=== PATIENT | female | born 1955 | race Caucasian/White ===

== ENCOUNTER 2022-01-26 16:30 | Outpatient (RCR) | payer BC, SELFPAY ==
--- NOTE | 2022-01-13 10:28 | PT.OPDN ---
PT [place] Outpatient Daily Note PT [facility] Outpatient Daily Note Start: 01/10/22 16:40 Freq: Status: Active Protocol: Document 01/10/22 16:40 CJT (Rec: 01/10/22 16:46 CJT [id number]) E-Signed By John Nguyen, PT PT OP Daily Progress Note Visit Information Note Type No Charge Visit Number 0 Insurance Authorized Visits tbd Physician Authorized Visits eval and treat Cancellation Note Cancelled Documentation This documentation is for the purpose of transferring information from old EMR to new EMR only. It is not attached to any specific visit or billing. Insurance Information Recert Due Date 03/03/22 Insurance Name [place] Medical Diagnosis L ankle OA, R knee OA, R RTC tendonitis Treating Diagnosis M25.511 - R shoulder pain M25.561 - R knee pain M25.572 - L ankle pain Referring Geovany Brown MD Subjective Subjective Pt presents with L ankle pain, R knee pain, and R shoulder RTC tendinitis. Left Ankle - Pt reports L ankle injury about 20 years ago after rolling her ankle over a crack in the cement while working. Has caused problems every so often since. Stairs are very challenging now and her ankle tends to lock up on her especially after periods of rest. Bleachers at work cause her the most pain and she has to use step-to pattern while going down stairs. Always steps down with the R LE first. She thinks this caused onset of R knee pain. 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 When ankle flares up it takes about 2 days to recover. R Shoulder - Pts R shoulder has been bothering her for past year. Points to front of shoulder and notes discomfort feels like it's deep in there . Pain does not get to a 10/ 10 but when it gets aggravated from work it will hurt through the night. Any lifting in front of the body or overhead causes pain. Laying on her R side in bed causes pain. Pt has history of R shoulder surgery about 20 years ago. Activity makes her pain worse, rest improves her pain. Right Knee - Sometimes she doesn't feel any pain in her knee at all. When she is not on the stairs/bleachers as much at work her knee feels better. Pt points to anterior knee along borders of patellar tendon today as the source of her pain, notes that it feels kind of jelly in there. Pts issues are keeping her from sleeping through the night. Pt notes there are some nights where she feels like she barely gets any sleep due to her aches and pains, but other nights she will sleep fairly well. Pain Comments L ankle - 10/10 at worst, 2/10 best R shoulder - 7/10 worst, 1-2/ 10 best R knee - 0/10 best; 6/10 worst Objective Other/Pertinent Objective Next session will be treatment session #2 Shoulder AROM R Flexion/Abduction/IR/ER - 170/165/T9/80 L Flexion/Abduction/IR/ER - 170/165/T7/80 B ankle DF/PF/IV/EV - 12(9)/60 /30/10 Mild pinching Reese/Jamil on R Minimal pain with L talar tilt test Medial/Lateral squeeze test reproduces at at B malleoli on L Patient Instructed in Risks/Benefits Yes Therapeutic Exercise Therapeutic Exercise: To Restore 4-way ankle with BRB x 20 reps Functional Status ea in long sitting Clamshells with ORB x 20 reps ea, 5 hold Supine bridge with ORB at knees x 20 reps, 5 hold Gastroc stretch in standing with toe at wall x 60 ea Shoulder IR/ER with ORB x 20 reps ea Self Care Management Training Self Care Management Training Kin tape applied to lateral knee to improve stability Assessment/Impression Assessment/Impression Pt presents with R shoulder, R knee, and L ankle pain. Ankle pain is pts primary concern and has been an issue for many years. Stairs make pain worse and rest will gradually make pain decrease. Pt notes she steps down with R LE when on stairs and this seems to be contributing to her R knee pain. R shoulder pain has been ongoing for past year. Made worse with lifting, reaching, laying on her R side. Testing reveals good strength throuhgout upper and lower extremities and reproducing pts pain is challenging today. Pts primary issue seems to be related to osteoarthritis in the knee and ankle. Skilled PT services are medically necessary at this time for addressing deficits and returning pt to highest level of function. Printout of HEP was given to pt and pt gave verbal understanding of each as well as demonstrated proper performance. Discussed scheduling with pt including 2/week for 8 weeks and pt gave verbal understanding and consent. Plan of Care Physical Therapy Goals STG - To be completed in 2-3 weeks: 1. Pt to report reduction in pain by factor of 3 in ankle after working so that she may I manage her pain to prepare for following work day. 2. Pt will report consistent use of ice on ankle following long work days to allow for appropriate control of pain and swelling in L ankle. 3. Pt will demo improved R shoulder IR equal to that of L so that she may fasten her bra with both hands . LTG - To be completed in 8 weeks: 1. Pt to be I with HEP so that they may I manage progression of symptoms. 2. 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 3. Pt will report ability to walk up to 2 miles wihtout increase in akle and knee pain so that she may walk for recreational exericse . 4. Pt will demo 5/5 MMT for empty can as indication of healed RTC tendon on R to provide greater stability for her shoulder. Daily Plan of Care Continue per POC Recertification Information Clinical Certification # #[id number] Patient's H.I.C.N.# # I Certify That I Have Established All Therapy Services/Plan Physician Signature Shows Agreement Dates & Medical Necessity Physician Comment/Change Comment or Changes Physician Signature & Date Please Sign/Date Here Physician NPI Number # Document 01/13/22 08:54 CJAlejandro (Rec: 01/13/22 09:00 CJT [id number]) E-Signed By John Nguyen, PT PT OP Daily Progress Note Visit Information Note Type Daily Note Visit Number 2 Insurance Authorized Visits tbd Physician Authorized Visits eval and treat Insurance Information Recert Due Date 03/03/22 Insurance Name [employer] Medical Diagnosis L ankle OA, R knee OA, R RTC tendonitis Treating Diagnosis M25.511 - R shoulder pain M25.561 - R knee pain M25.572 - L ankle pain Referring Geovany Brown MD Subjective Subjective Pt notes she has been doing well. Hasn't had much shoulder pain since last visit. Has not been faithful with her HEP as she reports she was not in the right mindset for completing exercises without having any appointments scheduled. Pain Comments L ankle - 10/10 at worst, 2/10 best R shoulder - 7/10 worst, 1-2/ 10 best R knee - 0/10 best; 6/10 worst Objective Other/Pertinent Objective Shoulder AROM R Flexion/Abduction/IR/ER - 170/165/T9/80 L Flexion/Abduction/IR/ER - 170/165/T7/80 B ankle DF/PF/IV/EV - 12(9)/60 /30/10 Mild pinching Reese/Jamil on R Minimal pain with L talar tilt test Medial/Lateral squeeze test reproduces at at B malleoli on L Patient Instructed in Risks/Benefits Yes Therapeutic Exercise Therapeutic Exercise Minutes (minutes) 50 Therapeutic Exercise: To Restore Bike - 6 minutes Functional Status 4-way ankle with BRB x 20 reps ea in long sitting Clamshells with ORB x 20 reps ea, 5 hold Supine bridge x 20 reps, 5 hold Shoulder IR/ER with ORB x 20 reps ea Extensions with GRB x 20 reps Rows with BRB x 20 reps Leg press, seat 8, 50# 2 x 15 reps CC Walking, 15# backward only x 6 rounds Side steps with light band around forefoot x 30 ft ea Gait & Stair Training Gait Training/Stairs Minutes (minutes) 8 Gait & Stair Training Comments Stair training with focus on down with the bad stepping technique as well as focus on reaching with toe to lower step to reduce strain on dependent LE. Pt shows good understanding of these techniques to be used if/when her ankle flares up after a long day of work. Self Care Management Training Self Care Management Training Kin tape applied to lateral knee to improve stability Treatment Minutes Timed Code Treatment Minutes 58 Total Treatment Time 58 Assessment/Impression Assessment/Impression Pt tolerates all exercises well today and shows good understanding of proper performance of exercises from HEP. Will plan to progress these when she returns as long as she reports consistency with these at home. Plan of Care Physical Therapy Goals STG - To be completed in 2-3 weeks: 1. Pt to report reduction in pain by factor of 3 in ankle after working so that she may I manage her pain to prepare for following work day. 2. Pt will report consistent use of ice on ankle following long work days to allow for appropriate control of pain and swelling in L ankle. 3. Pt will demo improved R shoulder IR equal to that of L so that she may fasten her bra with both hands . LTG - To be completed in 8 weeks: 1. Pt to be I with HEP so that they may I manage progression of symptoms. 2. 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 3. Pt will report ability to walk up to 2 miles wihtout increase in akle and knee pain so that she may walk for recreational exericse . 4. Pt will demo 5/5 MMT for empty can as indication of healed RTC tendon on R to provide greater stability for her shoulder. Daily Plan of Care Continue per POC
== END 2023-01-03 08:53 | disposition home or self-care (01) ==
PROVIDERS: PCP Family Medicine; Visit Provider Family Medicine
DX: M19.072 Primary osteoarthritis, left ankle and foot (principal); M17.11 Unilateral primary osteoarthritis, right knee; M75.101 Unspecified rotator cuff tear or rupture of right shoulder, not specified as traumatic; M25.511 Pain in right shoulder; M25.561 Pain in right knee; M25.572 Pain in left ankle and joints of left foot; Z51.89 Encounter for other specified aftercare
CPT/HCPCS: 97110; 97140; 97535

== ENCOUNTER 2022-02-23 13:13 | Outpatient (CLI) | payer BC, SELFPAY ==
--- NOTE | 2022-02-23 13:20 | CRLHL7_ITS ---
For Patients: As a result of the Cures Act, medical imaging exams and procedure reports are released immediately into your electronic medical record. You may view this report before your referring provider. If you have questions, please contact your health care provider. BILATERAL MAMMOGRAM WITH COMPUTER-AIDED DETECTION AND TOMOSYNTHESIS TECHNIQUE: CC and MLO views were obtained. These mammographic images have been obtained using full-field digital technique. These mammographic images were interpreted with the benefit of computer-aided detection. Breast Tomosynthesis was used in this interpretation. COMPARISON FILM: 03/19/20, 01/03/19, 07/20/17. FINDINGS: There are scattered areas of fibroglandular density IMPRESSION: There is no radiographic evidence for malignancy. ASSESSMENT: BI-RADS Category 1: Negative RECOMMENDATION: Routine screening mammogram in 1 year. A lay language report of this examination will be provided to the patient. Elio Erwin M.D. Diagnostic Radiologist [email or web address] KAMLESH/fercho / be/Dictated by: Elio Erwin MD @ 02/24/2022 9:23:00 AM (Electronically Signed)
== END 2022-02-23 13:14 | disposition home or self-care (01) ==
LOC: MAMMO 13:14
PROVIDERS: PCP Family Medicine; Visit Provider Nurse Practitioner Family
DX: Z12.31 Encounter for screening mammogram for malignant neoplasm of breast (principal)
CPT/HCPCS: 77063; 77067

== ENCOUNTER 2022-03-03 14:26 | Outpatient (CLI) | payer BC, SELFPAY ==
[2022-03-03 18:26] LABS: SARS PCR* POSITIVE SARS-CoV-2 (Negative)
== END 2022-03-03 14:27 | disposition home or self-care (01) ==
LOC: LONREF 14:26
PROVIDERS: PCP Family Medicine; Visit Provider Nurse Practitioner Family
DX: U07.1 COVID-19 (principal); R09.81 Nasal congestion
CPT/HCPCS: 87635

== ENCOUNTER 2022-03-27 07:44 | Outpatient (CLI) | payer BC, SELFPAY ==
--- NOTE | 2022-03-27 08:00 | CRLHL7_ITS ---
For Patients: As a result of the Century Cures Act, medical imaging exams and procedure reports are released immediately into your electronic medical record. You may view this report before your referring provider. If you have questions, please contact your health care provider. Indication: Left ANKLE PAIN, PREVIOUS INJURY (25 YEARS), now stiffness causing mobility issues Technique: Routine noncontrast CT left ankle. Please note that all CT scans at this facility use dose modulation, iterative reconstruction, and/or weight-based dosing when appropriate to reduce radiation dose to as low as reasonably achievable. Comparison: X-rays 11/24/2021 Findings: Joint space narrowing and spurring at the tibiotalar joint noted with subchondral cystic changes within the talar dome. Mild widening of the lateral mortise. Hypertrophic changes to the distal fibula. Old distal fibular metaphyseal fracture. Chronic ossicles adjacent to the medial malleolus. Chronic cystic changes within the medial malleolus with no evidence of acute fracture. No synovitis. Plantar and posterior calcaneal spurs. No coalition. Mild spurring at the posterior facet of the subtalar joint. Impression: Posttraumatic tibiotalar degenerative arthropathy. Please note that all CT scans at this facility use dose modulation, iterative reconstruction, and/or weight-based dosing when appropriate to reduce radiation dose to as low as reasonably achievable. Dictated by Elio Erwin MD @ 03/27/2022 9:07:45 AM (Electronically Signed)
== END 2022-03-27 07:45 | disposition home or self-care (01) ==
LOC: CT 07:45
PROVIDERS: PCP Family Medicine; Visit Provider Family Medicine
DX: M25.572 Pain in left ankle and joints of left foot (principal)
CPT/HCPCS: 73700

== ENCOUNTER 2022-04-26 10:30 | Outpatient (CLI) | payer BC, SELFPAY ==
[2022-04-26 13:08] LABS: SARS PCR* Negative SARS-CoV-2 (Negative)
== END 2022-04-26 10:31 | disposition home or self-care (01) ==
LOC: LONREF 10:30
PROVIDERS: PCP Family Medicine; Visit Provider Family Medicine
DX: Z20.822 Contact with and (suspected) exposure to COVID-19 (principal); R09.81 Nasal congestion
CPT/HCPCS: 87635

== ENCOUNTER 2022-09-22 07:54 | Outpatient (CLI) | payer BC, SELFPAY | END 2022-09-22 07:55 | disposition home or self-care (01) | LOC: RAD 07:57 | PROVIDERS: PCP Family Medicine; Visit Provider Internal Medicine | DX: I47.1 Supraventricular tachycardia (principal) | CPT/HCPCS: 93306 ==

== ENCOUNTER 2023-02-02 08:10 | Outpatient (CLI) | payer BC, SELFPAY | END 2023-02-02 08:11 | disposition home or self-care (01) | PROVIDERS: PCP Family Medicine; Visit Provider Family Medicine | DX: I10 Essential (primary) hypertension (principal); E78.5 Hyperlipidemia, unspecified; Z13.29 Encounter for screening for other suspected endocrine disorder; Z13.21 Encounter for screening for nutritional disorder | CPT/HCPCS: 80048; 80061; 82607; 84443 ==

== ENCOUNTER 2023-02-21 16:54 | Emergency (ER) | payer OTHER, BC, SELFPAY ==
[2023-02-21 16:59] VITALS: BP 167/81; PULSE 105; RESP 18; TEMP 36.8; O2SAT 97; BMI 29.2
--- NOTE | 2023-02-21 17:32 | ED_ITS ---
HPI - Wound/Laceration General Chief Complaint: Laceration/Wound Stated Complaint: R hand laceration Time Seen by Provider: 02/21/23 17:04 History of Present Illness HPI narrative: This 68-year-old female comes in with a laceration in the web space between her thumb and index finger of her right hand. She was walking through a construction area and slipped and pushed her hands forward on a double door and somehow caused this laceration. Her tetanus status is up-to-date. She does not report any other injury. Related Data Home Medications Medication Instructions Recorded Confirmed aspirin 81 mg tablet,delayed 81 mg PO QDAY 02/07/22 02/02/23 release (Adult Low Dose Aspirin) multivitamin (Multiple Vitamins 1 tab PO QDAY 02/07/22 02/02/23 tablet) cholecalciferol (vitamin D3) 25 25 mcg PO QDAY 04/26/22 02/02/23 mcg (1,000 unit) capsule omega 4-dvi-ldr-fish oil 300 1 cap PO QDAY 04/26/22 02/02/23 mg-1,000 mg capsule (Fish Oil) fluticasone propionate 50 spray intranasal 02/02/23 02/02/23 mcg/actuation nasal spray,suspension Previous Rx's Medication Instructions Recorded atorvastatin 40 mg tablet 40 mg PO QDAY #90 tabs 02/02/23 metoprolol succinate 25 mg 25 mg PO DAILY #90 tabs 02/02/23 tablet,extended release 24 hr Allergies Allergy/AdvReac Type Severity Reaction Status Date / Time niacin Allergy Unknown Rash Verified 02/02/23 07:39 Sulfa (Sulfonamide Allergy Unknown Rash Verified 02/02/23 07:39 Antibiotics) Review of Systems Status of ROS: Reports: 10 or more systems reviewed and unremarkable except as noted in History and below Narrative: Constitutional: No fevers, no weight gain or loss. Eyes: No discharge. No vision changes. HENT: No congestion, no sore throat, no ear pain. Cardiovascular: No chest pain, no palpitations. Respiratory: No shortness of breath, no wheezes, no cough. Gastrointestinal: No abdominal pain, no vomiting, no diarrhea. Genitourinary: No dysuria, no hematuria. Musculoskeletal: Normal range of motion. Skin: No rashes, no pruritis. Neurological: No dizziness, weakness, sensory change, speech change. Endo/Heme/Allergies: No bruising or bleeding. No polydipsia. Pysch: no suicidality, no anxiety, no insomnia. All other systems reviewed and are negative. PFSH PFSH Medical History TIA (transient ischemic attack) ?G45.9 - Transient cerebral ischemic attack, unspecified (ICD-10) Surgical History Status post shoulder surgery ?Z98.890 - Other specified postprocedural states (ICD-10) History of cardiac radiofrequency ablation ?Z98.890 - Other specified postprocedural states (ICD-10) Family History Brother High blood pressure Positive GBS test Alcohol dependence Mother High blood pressure Father High blood pressure Social History (Updated 02/05/23 @ 09:15 by Yamile Palomares [facility], [facility]) What is your current living situation?: I presently have a place to live Problems where you live: declined to answer In the past 12 months, utilities in danger of being shut off: no In the past 12 mos, have been you worried that your food would run out before you had money to buy more?: never true In the past 12 mos, the food you bought just didn't last and you didn't have money to buy more?: never true Smoking Status: Former smoker Second hand tobacco smoke exposure: No How often do you have a drink containing alcohol: never How often do you have six or more drinks on one occasion: Never AUDIT-C Alcohol total score: 0 Non-prescribed substance use: denies use Are you now , , , , never or living with a partner: Social isolation score (0-1 are the most socially isolated patients): 1 How often does anyone, including family, friends and others, physically hurt you : never How often does anyone, including family, friends and others, insult or talk down to you: never How often does anyone, including family, friends and others, threaten you with harm: never How often does anyone, including family, friends and others, scream or curse at you: never Little interest or pleasure in doing things: not at all Feeling down, depressed, or hopeless: not at all Exam Narrative: Exam Narrative: Constitutional: Well-developed, well-nourished, no acute distress. HEENT: Normocephalic, atraumatic. Neck: Normal range of motion. Nontender. Supple. Heart: Intact distal pulses. Lungs: No chest discomfort. No wheezes, rhonchi, or rales. Abdomen: Nontender. Back: Normal range of motion. Extremities: Normal range of motion. 3 cm irregular laceration in the interdigital space between the right thumb and index finger. There is no sign of tendon dysfunction or nerve injury. Skin: Intact. No rash. Warm. No erythema or pallor. Neurologic: No altered sensation. No weakness. Alert and oriented. Psychiatric: No suicidality. No anxiety or depression. No insomnia. Nursing notes and vitals signs are reviewed. Const: Vital Signs, click to edit/add: Vital Signs - 24 hr 02/21/23 16:59 Temperature 98.2 F Pulse Rate [Pulse Oximeter] 105 H Respiratory Rate 18 Blood Pressure [Ri ght Upper Arm] 167/81 H Pulse Oximetry 97 Oxygen Delivery Me thod Room Air Course Vital Signs Vital signs: Initial Vital Signs Temperature 98.2 F 02/21/23 16:59 Temperature Source Temporal Artery Scan 02/21/23 16:59 Pulse Rate 105 H 02/21/23 16:59 Respiratory Rate 18 02/21/23 16:59 Blood Pressure 167/81 H 02/21/23 16:59 Blood Pressure Mean 109 H 02/21/23 16:59 Pulse Oximetry 97 02/21/23 16:59 Oxygen Delivery Method Room Air 02/21/23 16:59 Vital Signs Temperature 98.2 F 02/21/23 16:59 Pulse Rate 105 H 02/21/23 16:59 Respiratory Rate 18 02/21/23 16:59 Blood Pressure 167/81 H 02/21/23 16:59 Pulse Oximetry 97 02/21/23 16:59 Oxygen Delivery Method Room Air 02/21/23 16:59 Temperature 98.2 F 02/21/23 16:59 Pulse Rate 105 H 02/21/23 16:59 Respiratory Rate 18 02/21/23 16:59 Blood Pressure 167/81 H 02/21/23 16:59 Pulse Oximetry 97 02/21/23 16:59 Oxygen Delivery Method Room Air 02/21/23 16:59 MDM - Wound/Laceration MDM Narrative Medical decision making narrative: This patient has a laceration to her right hand as described above. It would benefit from a repair. After anesthesia with 1% lidocaine the wound was cleansed and explored to its base. Seven sutures were placed in interrupted fashion to approximate the wound edges. This was done using 4.0 Ethilon suture. 2 Band-Aids were then applied. Instructions regarding wound care were given along with the need to have sutures removed in 7-10 days. Discharge Plan Discharge Clinical Impression: Laceration Patient Disposition: Home, Self-Care Condition: Improved Additional Instructions: Keep wound clean and dry. Follow up with urgent care or primary physician in the clinic for suture removal in 7-10 days. Return if worsening. Prescriptions: No Action omega 3-bqb-cpt-fish oil [Fish Oil] 300-1,000 mg capsule 1 cap PO QDAY cholecalciferol (vitamin D3) 25 mcg (1,000 unit) capsule 25 mcg PO QDAY fluticasone propionate 50 mcg/actuation spray,suspension intranasal atorvastatin 40 mg tablet 40 mg PO QDAY Qty: 90 3RF metoprolol succinate 25 mg tablet extended release 24 hr 25 mg PO DAILY Qty: 90 3RF multivitamin [Multiple Vitamins] Tablet 1 tab PO QDAY aspirin [Adult Low Dose Aspirin] 81 mg tablet,delayed release (DR/EC) 81 mg PO QDAY Follow Up/Referrals: Nacho Ma MD [Primary Care Provider] - Stand Alone Forms: [employer] Info Instructions
[2023-02-21 17:58] VITALS: BP 141/77; PULSE 69; RESP 12
== END 2023-02-21 17:57 | disposition home or self-care (01) ==
PROVIDERS: Emergency Provider Emergency Medicine Emergency Medical Services; PCP Family Medicine
DX: S61.411A Laceration without foreign body of right hand, initial encounter (principal); W26.9XXA Contact with unspecified sharp object(s), initial encounter; Y99.0 Civilian activity done for income or pay
CPT/HCPCS: 12002; 99283; 99284

== ENCOUNTER 2024-03-14 09:30 | Outpatient (CLI) | payer BC, OTHER, SELFPAY | END 2024-03-14 09:31 | disposition home or self-care (01) | LOC: NFLDREF 03-17 06:51 | PROVIDERS: PCP Family Medicine; Referring Provider Family Medicine; Visit Provider Family Medicine | DX: R19.5 Other fecal abnormalities (principal); E78.00 Pure hypercholesterolemia, unspecified; I10 Essential (primary) hypertension; Z13.0 Encounter for screening for diseases of the blood and blood-forming organs and certain disorders involving the immune mechanism | CPT/HCPCS: 80048; 80061 ==

== ENCOUNTER 2025-02-10 14:26 | Outpatient (RCR) | payer BC, SELFPAY | END 2025-04-21 14:21 | disposition home or self-care (01) | PROVIDERS: PCP Family Medicine | DX: S89.92XD Unspecified injury of left lower leg, subsequent encounter (principal); M25.562 Pain in left knee; Z51.89 Encounter for other specified aftercare | CPT/HCPCS: 97110; 97161 ==

== ENCOUNTER 2025-02-18 15:00 | Outpatient (CLI) | payer BC, SELFPAY | END 2025-02-18 15:01 | disposition home or self-care (01) | LOC: LKVREF 15:01 | PROVIDERS: PCP Family Medicine; Visit Provider Family Medicine | DX: E78.00 Pure hypercholesterolemia, unspecified (principal); I10 Essential (primary) hypertension; Z01.818 Encounter for other preprocedural examination | CPT/HCPCS: 80061 ==

== ENCOUNTER 2025-07-01 08:07 | Emergency (ER) | payer BC, SELFPAY ==
[2025-07-01] VITALS (10 sets, daily range): BP systolic 117–143; BP diastolic 63–81; PULSE 66–84; RESP 12–20; TEMP 36.1; O2SAT 93–97; BMI 29.2
--- NOTE | 2025-07-01 08:09 | CRLHL7_ITS ---
For Patients: As a result of the Cures Act, medical imaging exams and procedure reports are released immediately into your electronic medical record. You may view this report before your referring provider. If you have questions, please contact your health care provider. INDICATION: Chest pain. TECHNIQUE: Chest 2 views. COMPARISON: 06/30/2024. FINDINGS: Lungs and pleural spaces: No consolidation. No pleural effusion. No pneumothorax. Cardiovasculature and mediastinum: Heart size and mediastinal contours are normal. IMPRESSION: No acute cardiopulmonary abnormality Dictated by Juan Fernandez MD @ 07/01/2025 9:05:40 AM (Electronically Signed)
--- OUTSIDE RECORDS SUMMARY | 2025-07-01 08:17 | XMS_ITS | Clinical Summary ---
Author Organization [facility] Address [address] [place] [id number] Care Team Providers Care Unit Coordinator Name Role Phone Nacho Ma MD Primary Care Provider [phone] Allergies Active AllergyReactionsCriticalityNoted GytzJrwlpxflFanqdpXthv50/19/2014Sulfa (Sulfonamide Antibiotics)OlsvOgn6204/05/2023 Years ago when Medications MedicationSigDispense QuantityRefillsLast FilledStart DateEnd DateStatus multivitamin (MVI) tablet Take 1 tablet by mouth once daily. With calcium + vitamin D.ctive vitamin e 1,000 unit cap Take 4 capsules by mouth once daily.Active metoprolol succinate (TOPROL XL) 25 mg Sustained-Release tablet Take 25 mg by mouth once daily.07/26/2022ctive atorvastatin (LIPITOR) 40 mg tablet Take 0.5 Tablets (20 mg) by mouth at bedtime.ctive Dlxit-7-GYX-EPA-Fish Oil (Fish OiL) 1,000 mg (120 mg-180 mg) cap Take by mouth once daily.ctive aspirin (ECOTRIN) 81 mg enteric coated tablet Indications:Atypical chest painTake 1 Tablet (81 mg) by mouth once daily with a meal.ctive Active Problems ProblemNoted DateDiagnosed DateS/p left shoulder arthroscopic rotator cuff repair, subacromial decompression, and distal clavicle excision, DOS 10/25/[address] 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 unsure of health statusMotherAliveage 77; good healthSister 1ConnieAliveage 59; htnSister 2CorrineAliveage 47; good health Social History Tobacco UseTypesPacks/DayYears UsedDateSmoking Tobacco: TqjfppGyyazvnphs65 07/29/1975 - 07/29/1981Smokeless Tobacco: Never Tobacco Cessation:Counseling Given: Not Answered Comments:Quit smoking in 1981 Alcohol UseStandard Drinks/WeekCommentsYes0 (1 standard drink = 0.6 oz pure alcohol)very rareSocial ConnectionsAnswerDate RecordedFrequency of Communication with Friends and Ybmdva161Financial Resource StrainAnswerDate Recorded Difficulty of Paying Living Stfqqzgr362/21/2023Difficulty of Paying Living ExpensesNot on file04/05/2023Food InsecurityAnswerDate RecordedWorried About Running Out of Food in the Last Mdnn992Transportation NeedsAnswerDate RecordedLack of Transportation (Medical)Housing StabilityAnswerDate RecordedUnable to Pay for Housing in the Last Haqr6383CommentsNo Sex and Gender InformationValueDate RecordedSex Assigned at BirthNot on file Legal ZifWoznnj30/14/2013 6:39 AM CSTGender IdentityNot on fileSexual OrientationNot on file Last Filed Vital Signs Vital SignReadingTime TakenCommentsBlood Ylovzwsb953/6609 8:53 AM CDT Uxrrv159404/05/2023 8:53 AM SMQLlbiceoqlfl82.3 ??C (97.4 ??F)07/29/2021 10:52 AM CSTRespiratory Thzp772007/29/2021 10:52 AM CSTOxygen Hiaaacujaw30%08/31/2022 4:26 PM CSTInhaled Oxygen Concentration--Bkuwwm69.1 kg (169 lb 14.4 oz)04/05/2023 8:53 AM MWYUdmliz787 cm (5' 3)04/05/2023 8:53 AM CDTBody Mass Index30.1 04/05/2023 8:53 AM CDT Plan of Treatment Health MaintenanceDue DateLast DoneCommentsDepression screening for age 12+ 1969Hepatitis C screening for age 18-7901/20/1975Pneumococcal series for age 50+ (1 of 2 - PCV)01/21/1976Colonoscopy through age Mammogram for age 45-RSV vaccine for adults or (1 - Risk 50-74 years 1-dose series)2007Zoster (shingles) series for age 50+ (1 of 2)2007 Lipids for age 45-DEXA/DXA scan for age 65+2BMI (ht and wt on same day) for age 18+, 08/31/2022, 07/29/2021, Additional history existsCOVID-19 vaccine series (2024- season)2025 11/03/2020, 10/04/2020Influenza Vaccine (#1)/, 07/02/2017, 07/18/2016Tetanus iicmubd51Hepatitis B series for 19+Aged Out No longer eligible based on patient's age to complete this topic Medical Devices ImplantedTypeAreaManufacturerDevice IdentifierShelf Expiration DateModel / Serial / LotAncr Poplock 3.5mm - [id number] Implanted:Qty: 1 on 10/25/2015 [facility] Chap[facility] ShoulderConMed [id number]-[id number]# / / [id number] Poplock 3.5mm - [id number] Implanted:Qty: 1 on 10/25/2015 by Chap[facility] Should[employer]Con[employer] [id number]-3500# / / [id number] Sut Y-Knot Rc 2x2 Sut Hi-Fi Triple - [id number] Implanted:Qty: 1 on 10/25/2015 by Chaparro Monique III, MD at [facility]: Shoulder[employer]Med [id number]# / / [id number] Sut Y-Knot Rc 2x2 Sut Hi-Fi Triple - [id number] Implanted:Qty: 1 on 10/25/2015 by Chaparro Monique III, MD at [facility]: Shoulder[employer]Med [id number]# / / [id number] Procedures Procedure NamePriorityDate/TimeAssociated DiagnosisCommentsLIPID PANELEarly AM 05/03/2014 2:43 AM CDT from Last 3 Months or Most Recently Relevant to Health Maintenance Results * (ABNORMAL) Lipid Panel - In AM (05/03/2014 2:43 AM CDT)ComponentValueRef Range Test MethodAnalysis TimePerformed AtPathologist SignatureCHOLESTEROL,KOZML314 (H)100 - 199 mg/dL05/03/2014 3:18 AM [facility] PWFBMIOMFEKEFLNGBMMKTJZ02<150 mg/dL05/03/2014 3:18 AM [facility]AL[facility]AL LABORATORYHDL ITVNGXGAPCI82>40 mg/dL05/03/2014 3:18 AM CDT [facility]-CENTRAL LABORATORYNON-HDL OFSLVQOIOGR407(H)<145 mg/dl 05/03/2014 3:18 AM [facility]-CENTRAL LABORATORYCHOL/HDL RATIO3.62<4.501 3:18 AM [facility]-CENTRAL LABORATORYLDL TYLIBYUFXUS055(H)<=130 mg/dL05/03/2014 3:18 AM [facility]-CENTR[facility] LABORATORYPATIENT WCECWVSYZHWMN73/19/2014 3:18 AM [facility]-CENTRAL LABORATORYSpecimen (Source)Anatomical Location / LateralityCollection Method / VolumeCollection TimeReceived TimeBlood specimen (specimen)BLOOD SPECIMEN / UnknownButterfly / Rxnvdax1305/03/2014 2:43 AM CDT 05/03/2014 2:53 AM CDT Narrative Authorizing ProviderResult TypeResult StatusNorma Yue Wood MDCHEMISTRY Final ResultPerforming OrganizationAddressCity/State/ZIP CodePhone Number [facility] [address] [place] [address], from Last 3 Months or Most Recently Relevant to Health Maintenance Insurance * Guarantor: STEPHANIE DEL TOROAccount TypeRelation to PatientDate of PhoneBilling AddressOcc Health/UbzfDixaklnb89/01/[address] [address] * Guarantor: Skylar Garcia EAccount TypeRelation to PatientDate of PhoneBilling PxlijmfJautzsYmvc[address] [place] [id number] Advance Directives * Full Code (Latest Code Status on File) Date ActivatedDate InactivatedComments10/25/2015 1:15 PM10/25/2015 4:43 PMQuestion AnswerCommentsCode Status Discussion:* Not Discussed * Full Code Date ActivatedDate InactivatedComments10/25/2015 9:13 AM10/25/2015 1:15 PMQuestion AnswerCommentsCode Status Discussion:* Not Discussed * Full Code Date ActivatedDate InactivatedComments08/25/2014 8:28 AM08/26/2014 1:46 PM * Full Code Date ActivatedDate QkvtjmqemakAmdfipxl36/19/2014 2:21 AM05/04/2014 5:18 PM Care Teams Team MemberRelationshipSpecialtyStart DateEnd Date Nacho Ma MD PCP - [facility]07/16/18
--- NOTE | 2025-07-01 08:19 | ED.GENADULT ---
HPI - General Adult General Chief complaint: Rib Pain Stated complaint: Fever and LT chest pain Time Seen by Provider: 07/01/25 08:08 History of Present Illness HPI narrative: [age] year white female presents with onset of illness on Sunday where she felt chilled Contin cold, she has had a mild cough. She has had a history of pneumonia. No chronic lung disease with no emphysema no asthma. She feels a little bit better with the fever but has had some with inspiration some left-sided chest discomfort and in her mid axillary line area laterally. This is only on the left. No central pain. She has does have a cough not real productive. She has had no leg swelling edema history of bleeding or clotting problems. She has had a complex history including non ST elevation OR, stroke, hypertension history of ablation x2 for supraventricular tachycardia. Has history of cervical spine stenosis. She has no leg swelling or edema No sore throat earache headache or neck pain. Related Data Home Medications ?Medication ?Instructions ?Recorded ?Confirmed aspirin 81 mg tablet,delayed 81 mg PO QDAY 02/07/22 06/25/25 release (Adult Low Dose Aspirin) cholecalciferol (vitamin D3) 25 25 mcg PO QDAY 04/26/22 06/25/25 mcg (1,000 unit) capsule omega 5-dsi-gwh-fish oil 300 1 cap PO QDAY 04/26/22 06/25/25 mg-1,000 mg capsule (Fish Oil) calcium 400 mg (as tab PO DAILY 01/06/25 06/25/25 carbonate)-magnesium 117 mg-vit C 167 mg tablet vitamins A,C,K-esiy-tajhul 4,296 1 cap PO DAILY 01/06/25 06/25/25 mcg-226 mg-90 mg capsule (PreserVision AREDS) Previous Rx's ?Medication ?Instructions ?Recorded atorvastatin 40 mg tablet 40 mg PO QDAY #90 tabs 02/18/25 metoprolol succinate 25 mg 25 mg PO DAILY #90 tabs 02/18/25 tablet,extended release 24 hr diclofenac sodium 1 % topical gel 2 g topical QID PRN pain #100 grams 06/16/25 (Voltaren Arthritis Pain) doxycycline hyclate 100 mg capsule 100 mg PO BID #14 caps 07/01/25 prednisone 20 mg tablet 20 mg PO BID 5 days #10 tabs 07/01/25 Allergies Allergy/AdvReac Type Severity Reaction Status Date / Time niacin Allergy Unknown Rash Verified 06/25/25 14:10 Sulfa (Sulfonamide Allergy Unknown Rash Verified 06/25/25 14:10 Antibiotics) Review of Systems Status of ROS: Reports: 10 or more systems reviewed and unremarkable except as noted in History and below and 6 or more systems reviewed and unremarkable except as noted in History and below PFSH PFS Medical History Osteoarthritis ?M19.90 - Unspecified osteoarthritis, unspecified site (ICD-10) Vertigo ?R42 - Dizziness and giddiness (ICD-10) History of paroxysmal supraventricular tachycardia ?Z86.79 - Personal history of other diseases of the circulatory system (ICD-10) Anxiety ?F41.9 - Anxiety disorder, unspecified (ICD-10) GERD (gastroesophageal reflux disease) ?K21.9 - Gastro-esophageal reflux disease without esophagitis (ICD-10) Hyperlipidemia ?E78.5 - Hyperlipidemia, unspecified (ICD-10) Non-ST elevation OR (NSTEMI) ?I21.4 - Non-ST elevation (NSTEMI) myocardial infarction (ICD-10) Cervical spinal stenosis ?M48.02 - Spinal stenosis, cervical region (ICD-10) Irritable bowel syndrome ?K58.9 - Irritable bowel syndrome without diarrhea (ICD-10) Hypertension ?I10 - Essential (primary) hypertension (ICD-10) Shoulder pain ?M25.519 - Pain in unspecified shoulder (ICD-10) Varicose veins of lower extremity ?I83.90 - Asymptomatic varicose veins of unspecified lower extremity (ICD-10) Positive colorectal cancer screening using Cologuard test ?R19.5 - Other fecal abnormalities (ICD-10) TIA (transient ischemic attack) ?G45.9 - Transient cerebral ischemic attack, unspecified (ICD-10) Surgical History Status post shoulder surgery ?Z98.890 - Other specified postprocedural states (ICD-10) History of cardiac radiofrequency ablation ?Z98.890 - Other specified postprocedural states (ICD-10) Family History Brother High blood pressure Positive GBS test Alcohol dependence Mother High blood pressure Father High blood pressure Social History What is your current living situation?: I presently have a place to live Problems where you live: declined to answer In the past 12 months, utilities in danger of being shut off: no In past 12 months, lack of transportation kept you from medical appts, meetings, work, or getting things needed for daily living: no In the past 12 mos, have been you worried that your food would run out before you had money to buy more?: never true In the past 12 mos, the food you bought just didn't last and you didn't have money to buy more?: never true Smoking Status: Former smoker Second hand tobacco smoke exposure: No How often do you have a drink containing alcohol: never How often do you have six or more drinks on one occasion: Never AUDIT-C Alcohol total score: 0 Non-prescribed substance use: denies use Are you now , , , , never or living with a partner: Social isolation score (0-1 are the most socially isolated patients): 1 How often does anyone, including family, friends and others, physically hurt you: never How often does anyone, including family, friends and others, insult or talk down to you: never How often does anyone, including family, friends and others, threaten you with harm: never How often does anyone, including family, friends and others, scream or curse at you: never Exam Narrative: Exam Narrative: Objective: In general patient is in no apparent distress talks in even unlabored sentences, noncyanotic Alert or x3 No facial asymmetry Throat clear Neck is supple Chest shows left basilar rales clear somewhat with deep breathing no wheezing noted Heart rhythm regular with 2/6 systolic murmur occasional ectopic beat Abdomen benign soft nontender Extremities are no edema Neurologic nonfocal, good peripheral perfusion noted. Const: Vital Signs, click to edit/add: Vital Signs - 24 hr 07/01/25 08:19 07/01/25 08:45 07/01/25 09:02 Temperature 97.0 F L Pulse Rate 68 Pulse Rate [Pulse Oximeter] 84 Respiratory Rate 16 14 Blood Pressure 125/68 Blood Pressure [Ri ght Upper Arm] 143/81 H Pulse Oximetry 94 94 94 Oxygen Delivery Me thod Room Air 07/01/25 09:02 07/01/25 09:03 07/01/25 09:15 Temperature Pulse Rate 76 82 72 Pulse Rate [Pulse Oximeter] Respiratory Rate 13 15 12 Blood Pressure 125/68 Blood Pressure [Ri ght Upper Arm] Pulse Oximetry 93 94 93 Oxygen Delivery Me thod 07/01/25 09:30 07/01/25 09:32 07/01/25 09:32 Temperature Pulse Rate 70 68 68 Pulse Rate [Pulse Oximeter] Respiratory Rate 20 20 Blood Pressure 117/65 117/65 Blood Pressure [Ri ght Upper Arm] Pulse Oximetry 94 93 93 Oxygen Delivery Me thod 07/01/25 09:45 07/01/25 10:00 07/01/25 10:02 Temperature Pulse Rate 66 79 70 Pulse Rate [Pulse Oximeter] Respiratory Rate 13 Blood Pressure 124/63 Blood Pressure [Ri ght Upper Arm] Pulse Oximetry 97 94 95 Oxygen Delivery Me thod Course Vital Signs Vital signs: Initial Vital Signs Temperature 97.0 F L 07/01/25 08:19 Temperature Source Temporal Artery Scan 07/01/25 08:19 Pulse Rate 84 07/01/25 08:19 Pulse Rhythm Regular 07/01/25 08:19 Respiratory Rate 16 07/01/25 08:19 Blood Pressure 143/81 H 07/01/25 08:19 Blood Pressure Mean 101 07/01/25 08:19 Blood Pressure Position Supine 07/01/25 08:19 Pulse Oximetry 94 07/01/25 08:19 Oxygen Delivery Method Room Air 07/01/25 08:19 Vital Signs Temperature 97.0 F L 07/01/25 08:19 Pulse Rate 84 07/01/25 08:19 Respiratory Rate 16 07/01/25 08:19 Blood Pressure 143/81 H 07/01/25 08:19 Pulse Oximetry 94 07/01/25 08:19 Oxygen Delivery Method Room Air 07/01/25 08:19 Temperature 97.0 F L 07/01/25 08:19 Pulse Rate 70 07/01/25 10:02 Respiratory Rate 13 07/01/25 09:45 Blood Pressure 124/63 07/01/25 10:02 Pulse Oximetry 95 07/01/25 10:02 Oxygen Delivery Method Room Air 07/01/25 08:19 Medications Administered Medications: Discontinued Medications Generic Name Dose Route Start Last Admin Trade Name Haider PRN Reason Stop Dose Admin Aspirin 324 mg 07/01/25 08:09 07/01/25 08:56 Aspirin 81 Mg Tab.Chew PO 07/01/25 08:10 324 mg ONCE ONE Administration Doxycycline Hyclate 100 mg 07/01/25 09:50 07/01/25 10:05 Doxycycline Hyclate 100 Mg PO 07/01/25 09:51 100 mg ONCE ONE Administration Sodium Chloride 500 mls @ 500 mls/hr 07/01/25 08:09 07/01/25 10:05 0.9 % Sodium Chloride 500 Ml IV 07/01/25 09:08 Infused .Q1H ONE Infusion Prednisone 50 mg 07/01/25 09:50 07/01/25 10:05 Prednisone 10 Mg Tablet PO 07/01/25 09:51 50 mg ONCE ONE Administration Medical Decision Making MDM Narrative Medical decision making narrative: [age] year white female with history of stroke, non ST elevation OR, presents with left pleuritic type pain in the chest wall, with history of cough and fever and illness over the last 4 days. Will check viral studies, two view chest x-ray, EKG and troponin to rule out acute coronary syndrome although that is unlikely. I do not suspect this is a PE as well given her recent fever chills and infectious symptoms. For precaution will give her aspirin, IV fluid, start an IV, do blood cultures as CRP, lab studies. Disposition pending findings, high sensitivity troponin will be ordered. Patient has a complex medical history and I think that we need to rule out several things including pneumonia, acute coronary syndrome, chest wall discomfort or pleurisy. Also need to rule out viral syndrome. Addendum 9:50 a.m.: Patient's EKG shows normal sinus rhythm no acute ST T wave changes limited R-wave progression anteriorly. This is by my read. Her chest x-ray by my independent review shows no obvious abnormality. Lab studies show negative high sensitive troponin, negative CRP. Viral studies are negative. Because of the patient's cough and congestion would cover her with prednisone 50 mg now and then 520 b.i.d. x5 days, will give her doxycycline 100 mg b.i.d. times 7 days. Recommend follow up with regular doctor next few days. Return to ED sooner problems concerns worsening or changes. I suspect she has some chest wall pain from her cough. Not suspicious for PE or other intrathoracic pathology. Follow-up as recommended above. Lab Data Labs: Lab Results 07/01/25 07/01/25 07/01/25 Range/Units 08:40 08:45 09:10 WBC 4.99 (4.50-11.00) K/uL RBC 4.68 (4.00-5.20) m/uL Hgb 13.8 (12.0-16.0) gm/dL Hct 42.6 (33.0-51.0) % MCV 91 (80-100) fL MCH 30 (26-34) pg MCHC 32 (32-36) gm/dL RDW Coeff of Susan 12.1 (11.5-15.5) % Plt Count 175 (140-440) K/uL Neut % (Auto) 38.5 L (42.0-72.0) % Lymph % (Auto) 44.9 H (20-44) % [place] % (Auto) 13.6 H (0.0-11.0) % Eos % (Auto) 2.4 (0.0-7.0) % Baso % (Auto) 0.4 (0.0-3.0) % Neut # (Auto) 1.90 (1.7-7.0) K/uL Lymph # (Auto) 2.20 (0.90-2.90) K/uL [place] # (Auto) 0.70 (0.00-0.90) K/UL Eos # (Auto) 0.12 (0.00-0.50) K/uL Baso # (Auto) 0.02 (0.00-0.30) K/uL Abs Immat Gran (auto) 0.01 (0.00-0.30) K/uL Imm/Tot Granulo (auto) 0.2 % Diff Slide Review Acceptable Review (Acceptable) Sodium 136 (135-149) mmol/L Potassium 4.5 (3.6-5.1) mmol/L Chloride 104 (96-114) mmol/L Carbon Dioxide 25 (20-32) mmol/L Anion Gap 7 (7-15) mEq/L BUN 12 (7-30) mg/dL Creatinine 0.7 (0.5-1.5) mg/dL Estimated Creat Clear 44.54 Estimated GFR 94 ml/min Glucose 107 (60-115) mg/dL Calcium 8.9 (8.4-10.6) mg/dL Total Bilirubin 0.9 (0.1-1.5) mg/dL Direct Bilirubin 0.2 (0.0-0.5) mg/dL AST 36 H (12-35) U/L ALT 31 (4-35) U/L Alkaline Phosphatase 78 (40-150) U/L POC Troponin I High Sensi < 2.9 L (2.9-13.0) pg/mL C-Reactive Protein < 0.5 L (0.5-1.0) mg/dL NT-Pro-B Natriuret Pep 33 (See Note) pg/mL Total Protein 6.9 (6.0-8.3) g/dL Albumin 4.2 (3.3-5.0) g/dL SARS-CoV-2 (PCR) Negative SARS-CoV-2 (Negative) Influenza Type A (PCR) Negative PCR FLU A (Negative) Influenza Type B (PCR) Negative PCR FLU B (Negative) RSV (PCR) Negative PCR RSV (Negative) Discharge Plan Discharge Clinical Impression: Acute chest wall pain, Cough, History of paroxysmal supraventricular tachycardia, Non-ST elevation OR (NSTEMI) Patient Disposition: Home w/ Parent or Adult Condition: Stable Additional Instructions: Light activity, fluids, doxycycline and prednisone as prescribed. Start the prednisone tomorrow as you got a dose today. Recheck with regular doctor next 2-3 days, return to ED sooner problems or concerns. Activity Level: Light activity Discharge Diet: Regular Prescriptions: New doxycycline hyclate 100 mg capsule 100 mg PO BID Qty: 14 0RF prednisone 20 mg tablet 20 mg PO BID 5 Days Qty: 10 0RF No Action omega 0-wnt-zaj-fish oil [Fish Oil] 300-1,000 mg capsule 1 cap PO QDAY cholecalciferol (vitamin D3) 25 mcg (1,000 unit) capsule 25 mcg PO QDAY atorvastatin 40 mg tablet 40 mg PO QDAY Qty: 90 3RF metoprolol succinate 25 mg tablet extended release 24 hr 25 mg PO DAILY Qty: 90 3RF aspirin [Adult Low Dose Aspirin] 81 mg tablet,delayed release (DR/EC) 81 mg PO QDAY PreserVision AREDS 4,296 mcg-226 mg-90 mg capsule 1 cap PO DAILY Ca carbonate-mag oxide-vit C 400 mg calcium -117 mg-167 mg tablet PO DAILY diclofenac sodium [Voltaren Arthritis Pain] 1 % gel 2 g topical QID PRN (Reason: pain) Qty: 100 0RF Follow Up/Referrals: Nacho Ma MD [Primary Care Provider, Family Practice] Stand Alone Forms: MyHealth Info Instructions
[2025-07-01] MEDS: 0.9 % SODIUM CHLORIDE 500 ML 500 ML IV (08:56)
[2025-07-01] MEDS: ASPIRIN 81 MG TAB.CHEW 324 MG PO (08:56)
[2025-07-01 09:19] LABS: Hematocrit* 42.6 % (33.0-51.0); Hemoglobin* 13.8 gm/dL (12.0-16.0); Immature Granulocytes Abs Auto 0.01 K/uL (0.00-0.30); Immature Granulocytes Pct Auto 0.2 %; Mean Corpuscular HGB Conc 32 gm/dL (32-36); Mean Corpuscular Hemoglobin 30 pg (26-34); Mean Corpuscular Volume 91 fL (80-100); RDW Coefficient of Variation % 12.1 % (11.5-15.5); Red Blood Count* 4.68 m/uL (4.00-5.20); White Blood Count* 4.99 K/uL (4.50-11.00)
[2025-07-01 09:20] LABS: Albumin* 4.2 g/dL (3.3-5.0); Chloride* 104 mmol/L (96-114); Potassium* 4.5 mmol/L (3.6-5.1); Sodium* 136 mmol/L (135-149)
[2025-07-01 09:22] LABS: Blood Urea Nitrogen* 12 mg/dL (7-30); Creatinine* 0.7 mg/dL (0.5-1.5); Est. Creatinine Clearance* 44.54; Estimated Glomerular Filt Rate 94 ml/min
[2025-07-01 09:23] LABS: Alanine Aminotransferase* 31 U/L (4-35); Alkaline Phosphatase* 78 U/L (40-150); Anion Gap 7 mEq/L (7-15); Aspartate Amino Transferase* 36 U/L (12-35); Bilirubin Direct* 0.2 mg/dL (0.0-0.5); Bilirubin Total* 0.9 mg/dL (0.1-1.5); Calcium* 8.9 mg/dL (8.4-10.6); Carbon Dioxide* 25 mmol/L (20-32); Glucose* 107 mg/dL (60-115); Total Protein* 6.9 g/dL (6.0-8.3)
[2025-07-01 09:24] LABS: Lymphocytes Absolute Auto 2.20 K/uL (0.90-2.90); Slide Review Reflex Yes
[2025-07-01 09:40] LABS: NT Pro B Type NatriureticPept* 33 pg/mL (See Note)
[2025-07-01 09:47] LABS: PCR FLU A Negative PCR FLU A (Negative); PCR FLU B Negative PCR FLU B (Negative); PCR RSV Negative PCR RSV (Negative); SARS PCR* Negative SARS-CoV-2 (Negative)
[2025-07-01 09:49] LABS: Slide Review Acceptable Review (Acceptable)
[2025-07-01] MEDS: DOXYCYCLINE HYCLATE 100 MG PO (10:05)
== END 2025-07-01 10:11 | disposition home or self-care (01) ==
PROVIDERS: Emergency Provider Family Medicine; PCP Family Medicine
DX: R07.89 Other chest pain (principal); R05.1 Acute cough; Z79.82 Long term (current) use of aspirin; Z88.2 Allergy status to sulfonamides; Z86.73 Personal history of transient ischemic attack (TIA), and cerebral infarction without residual deficits; Z86.79 Personal history of other diseases of the circulatory system
CPT/HCPCS: 36415; 71046; 80048; 80076; 83880; 84484; 85025; 86140; 87040; 87631; 93005; 94761; 96360; 99284; 99285; A9270; J7030; J7512